=== PATIENT | female | born 2000 | race Caucasian/White ===

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

== ENCOUNTER 2022-09-01 13:17 | Outpatient (CLI) | payer OTHER ==
--- NOTE | 2022-09-01 14:14 | XRAY Report ---
PROCEDURE: Ankle 3 View RT INDICATIONS: R ANKLE PX TECHNIQUE: 3 views of the ankle were acquired. COMPARISON: 06/10/2017 FINDINGS: Bones: Mildly displaced comminuted oblique fracture of the distal fibula is present. Ankle mortise is normally aligned. No suspicious bony lesions. Soft tissues: No tibiotalar joint effusion. Achilles tendon appears normal. IMPRESSION: Distal fibular fracture. Reviewed by: Scarlet Cool MD on 09/01/2022 2:12 PM PST Approved by: Scarlet Cool MD on 09/01/2022 2:12 PM PST Station ID: [id number]
== END 2022-09-01 23:50 | disposition home or self-care (01) ==
LOC: DI.N 13:17
PROVIDERS: ATTEND Family Medicine
DX: S82.831A Other fracture of upper and lower end of right fibula, initial encounter for closed fracture (principal)